=== PATIENT | female | born 1995 | race Two or more races ===

== ENCOUNTER 2019-10-08 16:08 | Emergency (ER) | payer MEDICAID, OTHER ==
[~2019-10-08] VITALS: Ht 157.5 cm; Wt 83.9 kg
[2019-10-08 16:11] VITALS: BP 129/84
[2019-10-08] MEDS ORDERED: HYDROcodone/Acetamin 5/325 tab ORAL ONE (16:15)
[2019-10-08] MEDS ORDERED: HYDROcodone/Acetamin 5/325 tab ONE (16:16)
--- NOTE | 2019-10-08 16:21 | Emergency Room Report ---
History of Present Illness General Chief Complaint: Upper Extremity Injury Source: Patient Present Illness HPI Disclaimer: Please note that this report is being documented using [employer] technology. This can lead to erroneous entry secondary to incorrect interpretation by the dictating instrument. HPI: 24-year-old female presents with right wrist and right knee pain. Patient had a fall 3 days ago injuring her right knee and then yesterday injuring her right wrist. She complains of 10 out of 10 pain worse with palpation and movement. She is ambulatory. She denies any head or neck trauma. No back pain. No medical history. Patient incidentally complaining of urinary urgency as well. PMH: No medical history PSH: Reviewed Social Hx: Denies smoking drinking or illicit drug use Allergies: Coded Allergies: No Known Allergies (Unverified , 10/08/19) COVID-19 Screening Contact w/high risk pt: No Experienced COVID-19 symptoms?: No COVID-19 Testing performed [employer]ETING: No Patient History Last Menstrual Period: unk Reviewed Nursing Documentation: PMH: Agreed; PSxH: Agreed Nursing Documentation-PMH Past Medical History: No Stated History Review of Systems All Other Systems: negative except mentioned in HPI Physical Exam Vital Signs Date Time Temp Pulse Resp B/P (MAP) Pulse Ox O2 Delivery O2 Flow Rate FiO2 10/08/19 15:59 98.2 77 18 136/84 (101) 98 Room Air Sp02 EP Interpretation: reviewed, normal General Appearance: well appearing, no apparent distress Head: normocephalic, atraumatic Eyes: bilateral eye PERRL, bilateral eye EOMI ENT: hearing grossly normal, moist mucus membranes Neck: full range of motion, supple Respiratory: lungs clear, normal breath sounds, no rhonchi, no respiratory distress, no retraction, no wheezing Cardiovascular #1: normal peripheral pulses, regular rate, rhythm, no murmur Gastrointestinal: non tender, soft, non-distended, no guarding Musculoskeletal: other - Right wrist tender to palpation, no deformity with mild swelling, 2+ pulses palpated right knee mildly swollen full range of motion with mild pain mildly tender laterally. Neurologic: alert, oriented x3, no focal defects Skin: normal color, warm/dry Medical Decision Making Diagnostic Impression: Primary Impression: Right wrist sprain Additional Impressions: Contusion of knee, right UTI (urinary tract infection) ER Course MDM: Differential diagnosis included but not limited to wrist sprain, wrist fracture, wrist contusion, knee contusion, to name a few Clinical course-patient also complained of urinary urgency while in the ER so urinalysis was sent and was positive. X-rays were reviewed and showed no acute fracture in the wrist or the knee. Patient placed in a wrist brace, Aaron wrap applied to right knee and a crutch was provided. Patient started on Macrobid and pain control and will be discharged home with outpatient follow-up. Return precautions given. Labs - Laboratory Tests Test 10/08/19 16:45 Urine Color Jennifer Urine Appearance Cloudy Urine pH 9 (4.5-8.0) Urine Specific [place] 1.030 (1.005-1.035) Urine Protein 2+ (NEGATIVE) H Urine Glucose (UA) Negative (NEGATIVE) Urine Ketones 1+ (NEGATIVE) H Urine Blood 1+ (NEGATIVE) H Urine Nitrite Positive (NEGATIVE) H Urine Bilirubin Negative (NEGATIVE) Urine Ictotest Negative (NEGATIVE) Urine Urobilinogen Normal MG/DL (0.0-1.0) Urine Leukocyte Esterase 3+ (NEGATIVE) H Urine RBC 0-2 /HPF (0 - 2) Urine WBC 10-15 /HPF (0 - 2) H Urine Squamous Epithelial Cells Moderate /LPF (NONE/OCC) H Urine Bacteria Moderate /HPF (NONE) H On reevaluation: Pain improved Plan-patient to be discharged home, outpatient follow-up, return precautions given. Last Vital Signs Date Time Temp Pulse Resp B/P (MAP) Pulse Ox O2 Delivery O2 Flow Rate FiO2 10/08/19 16:11 98.2 89 18 129/84 100 Room Air Status: improved Disposition: HOME, SELF-CARE Condition: Improved Scripts Nitrofurantoin Monohyd/M-Cryst* (MACROBID 100 MG*) 100 Mg Capsule 100 MG ORAL EVERY 12 HOURS, #14 CAP Prov: Nabeel Dolan M.D. 10/08/19 Hydrocodone Bit/Acetaminophen 5-325* (NORCO 5-325 TABLET*) 1 Each Tablet 1 TAB ORAL Q6H PRN for Pain Scale (6-10), #8 TAB 0 Refills Prov: Nabeel Dolan M.D. 10/08/19 Ibuprofen* (MOTRIN*) 600 Mg Tablet 600 MG ORAL Q8H PRN for FOR PAIN, #20 TAB 0 Refills Prov: Nabeel Dolan M.D. 10/08/19 Nabeel Dolan M.D. Oct 08, 2019 16:21
[2019-10-08 16:52] LABS: APPEARANCE,URINE CLOUDY; BILIRUBIN, URINE NEGATIVE (NEGATIVE); COLOR,URINE AMBER; GLUCOSE, URINE (UA) NEGATIVE (NEGATIVE); KETONES,URINE 1+ (NEGATIVE); LEUKOCYTE ESTERASE ,URINE 3+ (NEGATIVE); NITRITE,URINE POSITIVE (NEGATIVE); PH,URINE 9 (4.5-8.0); PROTEIN,URINE 2+ (NEGATIVE); UROBILINOGEN,URINE NORMAL MG/DL (0.0-1.0)
--- NOTE | 2019-10-08 16:52 | Diagnostic Imaging Report ---
EXAM: X-RAY XRAY Wrist Complete R CLINICAL HISTORY: Trauma and wrist pain. COMPARISON: None FINDINGS: Total of 3 views of the right wrist were obtained. Alignment is anatomic. There is no fracture, bony lesions or erosions. Joint spaces are unremarkable. Surrounding soft tissue is normal. IMPRESSION: NO FRACTURE.
--- NOTE | 2019-10-08 16:53 | Diagnostic Imaging Report ---
EXAM: X-RAY XRAY Knee 3v R CLINICAL HISTORY: Trauma and knee pain. COMPARISON: None FINDINGS: Total of 3 views of the right knee were obtained. Alignment is anatomic. There is no fracture, bony lesions or erosions. Joint spaces are unremarkable. Surrounding soft tissue is normal. IMPRESSION: NO FRACTURE.
[2019-10-08] MEDS ORDERED: NORCO 5-325 TA1 EAC1 ORAL (17:18)
[2019-10-08] MEDS ORDERED: IBUPROFEN600 M1 ORAL (17:18)
[2019-10-08] MEDS ORDERED: NITROFURANTOIN100 M2 ORAL (17:18)
[2019-10-08 17:19] VITALS: BP 119/76
== END 2019-10-08 17:22 | disposition home or self-care (01) ==
LOC: EDBD 16:08 → EMR 16:35
DX: S63.501A Unspecified sprain of right wrist, initial encounter (principal); S80.01XA Contusion of right knee, initial encounter; N39.0 Urinary tract infection, site not specified; W19.XXXA Unspecified fall, initial encounter
CPT/HCPCS: 73110; 73562; 81003; 87086; Z7502; 99284